=== PATIENT | female | born 1980 | race African-American/Black ===

== ENCOUNTER 2020-02-29 18:14 | Emergency (ER) | payer MEDICAID ==
[~2020-02-29] VITALS: Ht 157.5 cm; Wt 84.0 kg
[2020-02-29 18:22] VITALS: BP 162/99
[2020-02-29] MEDS ORDERED: IBUPROFEN 600MG TABLET PO ONE (18:45)
== END 2020-02-29 19:00 | disposition home or self-care (01) ==
LOC: ER 18:14
DX: M79.641 Pain in right hand (principal); M54.10 Radiculopathy, site unspecified; E78.00 Pure hypercholesterolemia, unspecified; I10 Essential (primary) hypertension
CPT/HCPCS: 99282